=== PATIENT | female | born 1955 | race Caucasian/White ===

== ENCOUNTER 2017-01-13 13:20 | Emergency (ER) | payer MEDICARE, MEDICAID ==
[2017-01-13 13:50] VITALS: BP 103/81
--- NOTE | 2017-01-13 14:15 | UC ---
UC General HPI - HPI Summary HPI Summary: patient is from a jail, has had two days of vomiting. other people in the home have the same. she has a cough and a fever. she normally gets food pureed. - History of Current Complaint Chief Complaint: UCGI Stated Complaint: VOMITING Time Seen by Provider: 01/13/17 14:07 Hx Obtained From: Family/It Business Process Architect Hx From Patient Unobtainable Due To: Other - MR Onset/Duration: Sudden Onset, Lasting Days Timing: Constant Onset Severity: Mild Current Severity: Mild Pain Intensity: 0 - patient is not displaying signals of pain - Allergy/Home Medications Allergies/Adverse Reactions: Allergies Allergy/AdvReac Type Severity Reaction Status Date / Time Megestrol [From Megace] Allergy Unknown Verified 01/13/17 13:51 Reaction Details Penicillins Allergy Unknown Verified 01/13/17 13:51 Reaction Details Phenobarbital Allergy Unknown Verified 01/13/17 13:51 Reaction Details PMH/Surg Hx/FS Hx/Imm Hx Previously Healthy: Yes - Surgical History Surgical History: Unable to Obtain/Confirm - Family History Known Family History: Positive: Unknown Negative: Hypertension Family History: from jail, info not available - Social History Alcohol Use: None Substance Use Type: None Smoking Status (MU): Never Smoked Tobacco Review of Systems Constitutional: Fever Skin: Negative Eyes: Negative ENT: Nasal Discharge Respiratory: Cough Cardiovascular: Negative Gastrointestinal: Vomiting Genitourinary: Negative Motor: Negative Neurovascular: Negative Musculoskeletal: Negative Neurological: Negative Psychological: Negative All Other Systems Reviewed And Are Negative: Yes Physical Exam Triage Information Reviewed: Yes Appearance: No Pain Distress, Well-Nourished, Ill-Appearing Vital Signs: Initial Vital Signs Temp 99.2 F 01/13/17 13:38 Resp 18 01/13/17 13:38 BP 103/81 01/13/17 13:38 Vital Signs Reviewed: Yes Eye Exam: Normal Eyes: Positive: Conjunctiva Clear ENT: Positive: Hearing grossly normal, Nasal congestion, Nasal drainage, TMs normal Dental Exam: Normal Neck exam: Normal Neck: Positive: Supple, Nontender, No Lymphadenopathy Respiratory: Positive: Chest non-tender, No respiratory distress, No accessory muscle use, Crackles - upper right lobe Cardiovascular Exam: Normal Cardiovascular: Positive: RRR, No Murmur, Pulses Normal Abdominal Exam: Normal Abdomen Description: Positive: Nontender, No Organomegaly, Soft Bowel Sounds: Positive: Present Musculoskeletal Exam: Normal Musculoskeletal: Positive: Strength Intact, ROM Intact - at baseline, she has contractures, No Edema Neurological Exam: Normal Neurological: Positive: Alert, Muscle Tone Normal Psychological Exam: Normal Psychological: Positive: Normal Response To Family Skin Exam: Normal Course/Dx - Course Course Of Treatment: hx obtained, exam performed, meds reviewed, zofran given, flu test neg, treated with doxycycline for possible aspiration pneumonia - Differential Dx - Multi-Symptom Provider Diagnoses: gastroenteritis. aspiration pneumonia Discharge - Discharge Plan Condition: Stable Disposition: HOME Prescriptions: DOXYcycline CAP(*) [DOXYcycline 100MG CAP(*)] 100 mg PO BID #14 cap Patient Education Materials: Aspiration Pneumonia (GEN) Additional Instructions: take the doycycline as prescribed. The flu test was negative Push fluids while vomiting and diarrhea persist.
[2017-01-13] MEDS ORDERED: Ondansetron ODT TAB* 4 MG PO ONE (14:16)
== END 2017-01-13 15:06 | disposition home or self-care (01) ==
LOC: UCCORT 13:20
DX: K52.9 Noninfective gastroenteritis and colitis, unspecified (principal); J69.0 Pneumonitis due to inhalation of food and vomit; Z88.0 Allergy status to penicillin; Z88.8 Allergy status to other drugs, medicaments and biological substances
CPT/HCPCS: 87502; 99212; A9270-GY; G0463

== ENCOUNTER 2018-01-09 14:43 | Emergency (ER) | payer MEDICARE, MEDICAID ==
[2018-01-09 17:43] VITALS: BP 148/98
--- NOTE | 2018-01-09 17:50 | UC ---
Skin Complaint HPI - HPI Summary HPI Summary: Pt is accompanied by caregiver. caregivers reports erythematous area to right inner thigh and groin. Pt is incontinent and is wheelchair bound. - History of Current Complaint Time Seen by Provider: 01/09/18 17:35 Stated Complaint: RT LEG SKIN COMPLAINT Hx Obtained From: Family/Campus Recruiting Intern Hx From Patient Unobtainable Due To: Other - sever MR ?: No Onset/Duration: Gradual Onset, Still Present, Worse Since - onset Skin Exposure Onset/Duration: Days Ago Timing: Constant Onset Severity: Mild Current Severity: Moderate Pain Intensity: 0 Location: Discrete - right upper thigh and groin Character: Redness Aggravating Factor(s): Touch Alleviating Factor(s): Unknown Associated Signs & Symptoms: Positive: Rash - Allergy/Home Medications Allergies/Adverse Reactions: Allergies Allergy/AdvReac Type Severity Reaction Status Date / Time megestrol Allergy Unknown Verified 01/09/18 17:35 Reaction Details Penicillins Allergy Unknown Verified 01/09/18 17:35 Reaction Details phenobarbital Allergy Unknown Verified 01/09/18 17:35 Reaction Details Home Medications: Home Medications Acetaminophen SUPP* [Tylenol Supp*] 325 mg ID Q4H PRN 01/09/18 [History Confirmed 01/09/18] Acetaminophen TAB* [Tylenol TAB*] 325 mg PO Q4H PRN 01/09/18 [History Confirmed 01/09/18] Acetaminophen [Acetaminophen Extra Strength] 500 mg PO TID 01/09/18 [History Confirmed 01/09/18] Bacitracin OINTMENT ANGELICA* 1 applic TOPICAL TID PRN 01/09/18 [History Confirmed ] Bisacodyl SUPP* [Dulcolax Supp*] 10 mg ID SEE INSTRUCTIONS PRN 01/09/18 [ History Confirmed 01/09/18] Calcium Carbonate/Vitamin D2 [Oyster Shell Calcium-Vit D Tab] 1 each PO DAILY [History Confirmed 01/09/18] Docusate CAP* [Colace Cap*] 100 mg PO 2000 01/09/18 [History Confirmed 01/09/18] Esomeprazole(NF) [Nexium(NF)] 40 mg PO 0600 01/09/18 [History Confirmed 01/09/18 ] GuaiFENesin DM* [Robitussin DM*] 5 ml PO Q4H PRN 01/09/18 [History Confirmed 08/18] Hydrocortisone 1% CREAM* [Hytone Cream 1%*] 1 applic TOPICAL TID PRN 01/09/18 [ History Confirmed 01/09/18] Levothyroxine TAB* [Synthroid 25 MCG TAB*] 25 mcg PO 2000 01/09/18 [History Confirmed 01/09/18] Loratadine 10 mg PO DAILY 01/09/18 [History Confirmed 01/09/18] Meloxicam(NF) [Mobic(NF)] 7.5 mg PO DAILY 01/09/18 [History Confirmed 01/09/18] Pseudoephedrine TAB* [Sudafed TAB*] 30 mg PO Q6H PRN 01/09/18 [History Confirmed 01/09/18] Vitamin THERAPEUTIC TAB* [Theragran TAB*] 1 tab PO DAILY 01/09/18 [History Confirmed 01/09/18] Review of Systems Constitutional: Negative Skin: Rash Eyes: Negative ENT: Negative Respiratory: Negative Cardiovascular: Negative Gastrointestinal: Negative Genitourinary: Negative Motor: Decreased ROM, Weakness Neurovascular: Negative Musculoskeletal: Other: - wheelchair bound Neurological: Weakness Psychological: Negative Is Patient Immunocompromised?: No All Other Systems Reviewed And Are Negative: Yes PMH/Surg Hx/FS Hx/Imm Hx Previously Healthy: No Psychological History: Other - MR Other Psychological History: MR - Surgical History Surgical History: Unable to Obtain/Confirm - Family History Known Family History: Positive: Unknown Negative: Hypertension Family History: from assisted, info not available - Social History Occupation: Disabled Lives: Half-Way Alcohol Use: None Substance Use Type: None Smoking Status (MU): Never Smoked Tobacco Have You Smoked in the Last Year: No Physical Exam Triage Information Reviewed: Yes Appearance: Well-Appearing Vital Signs: Initial Vital Signs Temp 98.3 F 01/09/18 17:26 Pulse 74 01/09/18 17:26 Resp 18 01/09/18 17:26 BP 148/98 01/09/18 17:26 Pulse Ox 0 01/09/18 17:26 Vital Signs Reviewed: Yes Eye Exam: Normal Respiratory: Positive: No respiratory distress Musculoskeletal: Positive: Strength Limited @ - generalized, ROM Limited @ - generalized Neurological Exam: Other - pre-existing Psychological Exam: Other - MR Skin Exam: Other - erythematous, slight swelling, right upper thigh and groin. Course/Dx - Differential Diagnoses - Skin Complaint Differential Diagnoses: Cellulitis, Tinea - Diagnoses Provider Diagnoses: tinea right upper thigh and groin Discharge - Discharge Plan Condition: Stable Disposition: HOME Prescriptions: Fluconazole 100 MG TAB* [Diflucan 100 MG TAB*] 100 mg PO DAILY #7 tab Terbinafine [Lamisil At] 1 % TOPICAL Q12H #1 tube Patient Education Materials: Skin Yeast Infection (ED) Referrals: Dominick Purdy MD [Primary Care Provider] - If Needed
== END 2018-01-09 18:06 | disposition home or self-care (01) ==
LOC: UCCORT 14:43
DX: B35.9 Dermatophytosis, unspecified (principal); Z99.3 Dependence on wheelchair
CPT/HCPCS: 99212; G0463

== ENCOUNTER 2018-07-06 16:15 | Emergency (ER) | payer MEDICARE, MEDICAID ==
[2018-07-06 16:46] VITALS: BP 124/93
--- NOTE | 2018-07-06 16:52 | UC ---
Lower Extremity/Ankle HPI - HPI Summary HPI Summary: 63 year old female with developmental delay presents with caregiver reporting bruising to right lower leg. States it was noted upon return from her day programing today. Unsure of mechanism of injury. Patient is non-ambulatory and confined to wheelchair at baseline. - History of Current Complaint Chief Complaint: UCSkin Stated Complaint: RT LEG CONCERN Time Seen by Provider: 07/06/18 16:29 Hx Obtained From: Family/Print Shop Manager Hx From Patient Unobtainable Due To: Other - devopmental delay ?: No Severity Initially: Mild Severity Currently: Mild Pain Intensity: 0 - Allergies/Home Medications Allergies/Adverse Reactions: Allergies Allergy/AdvReac Type Severity Reaction Status Date / Time megestrol Allergy Unknown Verified 07/06/18 16:33 Reaction Details Penicillins Allergy Unknown Verified 07/06/18 16:33 Reaction Details phenobarbital Allergy Unknown Verified 07/06/18 16:33 Reaction Details PMH/Surg Hx/FS Hx/Imm Hx - Additional Past Medical History Additional PMH: non-contributory - Surgical History Surgical History: Unable to Obtain/Confirm - Family History Known Family History: Positive: Unknown Negative: Hypertension Family History: from custodial, info not available - Social History Occupation: Disabled Lives: Care Home Alcohol Use: None Substance Use Type: None Smoking Status (MU): Never Smoked Tobacco Have You Smoked in the Last Year: No Review of Systems Constitutional: Negative Skin: Bruising Respiratory: Negative Motor: Negative Neurovascular: Negative Musculoskeletal: Negative Is Patient Immunocompromised?: No All Other Systems Reviewed And Are Negative: Yes Physical Exam Triage Information Reviewed: Yes Completion Of Physical Exam Limited Due To: Other - developmental delay Appearance: Well-Appearing, No Pain Distress, Thin Vital Signs: Initial Vital Signs Temp 98.9 F 07/06/18 16:38 Pulse 110 07/06/18 16:38 Resp 14 07/06/18 16:38 BP 124/93 07/06/18 16:38 Vital Signs Reviewed: Yes Respiratory: Positive: No respiratory distress Cardiovascular: Positive: Pulses Normal Musculoskeletal Exam: Normal Neurological Exam: Normal Skin: Positive: Other - 2cm x 5.5 cm contusion noted to mid right anterior lower leg Lower Extremity Course/Dx - Course Course Of Treatment: 63 year old female with developmental delays presents with contusion to right lower leg discovered after day programming. Unknown mechanism of injury. Bruising is consistent with accidental injury likely self- inflicted. No obvious deformities. Patient is non-ambulatory at baseline. Recommend conservative treatment and watchful waiting. Caregiver verbalizes understanding. - Differential Dx/Diagnosis Provider Diagnoses: contusion right anterior lower leg Discharge - Sign-Out/Discharge Documenting (check all that apply): Patient Departure - Discharge Plan Condition: Stable Disposition: HOME Patient Education Materials: Contusion in Adults (ED) Referrals: Dominick Purdy MD [Primary Care Provider] - If Needed - Billing Disposition and Condition Condition: STABLE Disposition: Home Images Front/Back of Body, Lg (Sioux): 1 - 2 cm x 5.5 cm area of ecchymosis. No erythema, edema, or deformity noted.
== END 2018-07-06 16:59 | disposition home or self-care (01) ==
LOC: UCCORT 16:15
DX: S80.11XA Contusion of right lower leg, initial encounter (principal); X58.XXXA Exposure to other specified factors, initial encounter; Y93.9 Activity, unspecified; Y92.9 Unspecified place or not applicable; Z99.3 Dependence on wheelchair; Z88.0 Allergy status to penicillin; Z88.8 Allergy status to other drugs, medicaments and biological substances
CPT/HCPCS: 99211; G0463

== ENCOUNTER 2019-05-29 17:44 | Emergency (ER) | payer MEDICARE, MEDICAID ==
[2019-05-29 18:31] VITALS: BP 111/67
--- NOTE | 2019-05-29 18:58 | UC ---
Skin Complaint HPI - HPI Summary HPI Summary: 64 yo female with rash noted today recently started bactrim see is not verbal aid does not know why the bactrim was started - History of Current Complaint Chief Complaint: UCRash Time Seen by Provider: 05/29/19 18:41 Stated Complaint: RASH Hx Obtained From: Family/Gmat Instructor Hx From Patient Unobtainable Due To: Other - PROFOUND MR Onset/Duration: Lasting Hours Timing: Constant Onset Severity: Mild Current Severity: Mild Location: Other - primarily on trunk Character: Redness Aggravating Factor(s): Nothing Alleviating Factor(s): Unknown Associated Signs & Symptoms: Positive: Rash - Allergy/Home Medications Allergies/Adverse Reactions: Allergies Allergy/AdvReac Type Severity Reaction Status Date / Time megestrol Allergy Unknown Verified 05/29/19 18:32 Reaction Details Penicillins Allergy Unknown Verified 05/29/19 18:32 Reaction Details phenobarbital Allergy Unknown Verified 05/29/19 18:32 Reaction Details PMH/Surg Hx/FS Hx/Imm Hx Previously Healthy: Yes - Surgical History Surgical History: Unable to Obtain/Confirm - Family History Known Family History: Positive: Unknown Negative: Hypertension Family History: from snf, info not available - Social History Alcohol Use: None Substance Use Type: None Smoking Status (MU): Never Smoked Tobacco Have You Smoked in the Last Year: No Review of Systems All Other Systems Reviewed And Are Negative: Yes Constitutional: Positive: Negative Skin: Positive: Rash Eyes: Positive: Negative ENT: Positive: Negative Respiratory: Positive: Negative Cardiovascular: Positive: Negative Gastrointestinal: Positive: Negative Genitourinary: Positive: Negative Motor: Positive: Negative Neurovascular: Positive: Negative Musculoskeletal: Positive: Negative Neurological: Positive: Negative Psychological: Positive: Negative Physical Exam Triage Information Reviewed: Yes Appearance: Well-Appearing, No Pain Distress, Well-Nourished Vital Signs: Initial Vital Signs Temp 97.9 F 05/29/19 18:25 BP 111/67 05/29/19 18:25 Vital Signs Reviewed: Yes ENT: Negative: Nasal congestion, Nasal drainage, Trismus, Muffled voice Dental Exam: Other - edentulous Neck: Positive: Supple, Nontender, No Lymphadenopathy Respiratory: Positive: Lungs clear, Normal breath sounds, No respiratory distress, No accessory muscle use Cardiovascular: Positive: RRR, No Murmur Musculoskeletal: Positive: Other: - contractures Neurological: Positive: Alert Skin Exam: Other - red macular rash Course/Dx - Diagnoses Provider Diagnosis: Allergic reaction caused by a drug Discharge - Sign-Out/Discharge Documenting (check all that apply): Patient Departure All imaging exams completed and their final reports reviewed: No Studies - Discharge Plan Condition: Stable Disposition: HOME Patient Education Materials: General Allergic Reaction (ED) Referrals: Dominick Purdy MD [Primary Care Provider] - 2 Days Additional Instructions: stop bactrim contact her MD in AM to see what antibiotic he would like to use in it's place - Billing Disposition and Condition Condition: STABLE Disposition: Home
== END 2019-05-29 19:06 | disposition home or self-care (01) ==
LOC: UCCORT 17:44
DX: L27.0 Generalized skin eruption due to drugs and medicaments taken internally (principal); T36.8X5A Adverse effect of other systemic antibiotics, initial encounter; Y92.9 Unspecified place or not applicable; F73 Profound intellectual disabilities; Z88.0 Allergy status to penicillin
CPT/HCPCS: 99211; G0463

== ENCOUNTER 2019-12-20 09:59 | Emergency (ER) | payer MEDICARE, MEDICAID ==
--- OUTSIDE RECORDS SUMMARY | 2019-12-20 10:08 | XMS REPORT | Continuity of Care Document ---
:1955 External Reference #:[id number] Author Name Abril Walden FNP (transmitted by agent of provider Ashlyn Pro) Address [address] [place] [address] Care Team Providers Name Role Phone Dominick Purdy MD - Family Medicine Care Team Information Machine Dyer [phone] Problems Active Problems Provider Date Arthralgia of the pelvic region and thigh Anjel Jones M.D. Onset: 2016 Social History Type Date Description Comments Sex Unknown Tobacco Use Start: Unknown Never Smoked Cigarettes ETOH Use Never used alcohol Tobacco Use Start: Unknown Patient denies history of smoking Smoking Status Reviewed: 11/22/19 Patient denies history of smoking Allergies, Adverse Reactions, Alerts Active Allergies Reaction Severity Comments Date Penicillin 09/15/2018 Megace 09/15/2018 Phenobarbital 09/15/2018 Bactrim 11/22/2019 Inactive Allergies NKDA 09/11/2016 Medications Active Medications SIG Qnty Indications Ordering Date Provider Nystscot Use an oral swab 140units B37.9 Iram, 11/22/2019 to coat surfaces Abril Hopkins, [id number]/ML of mouth (5Ml) OFFICE SERVICES REPRESENTATIVE Suspension mouth four times a day for 7 days, swallowing if fine Meloxicam take 1 tablet by 30tabs Tara Hammonds, 09/03/2013 7.5mg mouth daily with Tablets food Acetaminophen 1 tabs by mouth Unknown 500mg tid & prn Tablets Colace 1 by mouth a day Unknown 100mg Capsules Levothyroxine Sodium 1 by mouth every Unknown day 25mcg Tablets Loratadine 1 by mouth every Unknown 10mg day Tablets Nexium 1 by mouth every Unknown 40mg Capsules day DR Amaya Richards Calcium 1 daily Unknown 250+D 250-125 Tablets Multivitamin Adult 1 tab daily Unknown Chewtabs Dulcolax apply once a day Unknown 10mg in rectum on day Suppository 4 for no bm. Immunizations Description No Information Available Vital Signs Date Vital Result Comment 11/22/2019 8:15am BP Systolic 100 mmHg BP Diastolic 60 mmHg Body Temperature 98.0 F Heart Rate 66 /min Respiratory Rate 18 /min Weight 60.00 lb Pain Level 0 09/15/2019 8:57am Body Temperature 97.7 F Results Description No Information Available Procedures Description No Information Available Medical Devices Description No Information Available Encounters Type Date Location Provider Dx Diagnosis Office Visit 11/22/2019 Walk In Clinic Rhiannon Walden7.9 Candidiasis, 8:00a Abril Hopkins, unspecified OFFICE SERVICES REPRESENTATIVE Office Visit 09/15/2019 Orthopaedic Office Wendy Bennett M16.12 Unilateral primary 9:00a ISHA Agustin osteoarthritis, left hip M16.11 Unilateral primary osteoarthritis, right hip Assessments Date Code Description Provider 11/22/2019 B37.9 Candidiasis, unspecified Abril Walden, OFFICE SERVICES REPRESENTATIVE 09/15/2019 M16.12 Unilateral primary osteoarthritis, Wendy Bennett RPAC left hip 09/15/2019 M16.11 Unilateral primary osteoarthritis, Wendy Bennett, [facility] right hip Plan of Treatment Future Appointment(s):09/15/2020 8:30 am - Wendy Bennett [facility]AC at [facility]opa[facility] Fojgku3011/22/2019 - Abril Walden, FNPB37.9 Candidiasis, unspecifiedNew Medication:Nystatin 179129 Unit/ML - Use an oral swab to coat surfaces of mouth (5Ml) mouth four times a day for 7 days, swallowing if fineComments:Use nystatin on a oral swab, coat surfaces of mouth. Offer yogurt which will be helpful. plenty of fluids. If symptoms do not improve please follow up with PCP or go to the ED for further evaluation. Functional Status Description No Information Available Mental Status Description No Information Available Referrals Description No Information Available
--- OUTSIDE RECORDS SUMMARY | 2019-12-20 10:08 | XMS REPORT | Continuity of Care Document ---
:1955 External Reference #:[id number] Author Name Abril Walden FNP (transmitted by agent of provider Ashlyn Pro) Address [address] [place] [address] Care Team Providers Name Role Phone Dominick Purdy MD - Family Medicine Care Team Information Assistant Director Of Residence Life Problems Active Problems Provider Date Arthralgia of [...] Iram, 11/22/2019 to coat surfaces Abril Hopkins, [id number]/ML of mouth (5Ml) PHARMACY OPERATIONS MANAGER Suspension mouth four times a day for [...] Rhiannon Walden7.9 Candidiasis, 8:00a Abril Hopkins, unspecified PHARMACY OPERATIONS MANAGER Office Visit 09/15/2019 Orthopaedic Office Wendy Bennett M16.12 Unilateral primary 9:00a ISHA Agustin osteoarthritis, left hip M16.11 Unilateral primary osteoarthritis, right hip Assessments Date Code Description Provider 11/22/2019 B37.9 Candidiasis, unspecified Abril Walden, PHARMACY OPERATIONS MANAGER 09/15/2019 M16.12 Unilateral primary osteoarthritis, Wendy Bennett RPAC left hip 09/15/2019 M16.11 Unilateral primary osteoarthritis, Wendy Bennett, [facility] right hip Plan of Treatment Future Appointment(s):09/15/2020 8:30 am - Wendy Bennett RPAC at Orthopaedic Xaxlrv4111/22/2019 - Abril Walden, FNPB37.9 Candidiasis, unspecifiedNew Medication:Nystatin 324508 Unit/ML - Use an oral swab to [...]
--- OUTSIDE RECORDS SUMMARY | 2019-12-20 10:08 | XMS REPORT | Continuity of Care Document ---
:1955 External Reference #:[id number] Author Name Abril Walden FNP (transmitted by agent of provider Ashlyn Pro) Address [address] [place] [address] Care Team Providers Name Role Phone Dominick Purdy MD - Family Medicine Care Team Information Sharepoint Trainer [phone] Problems Active Problems Provider Date Arthralgia of the pelvic region and thigh Anjel Jones M.D. Onset: 2016 Social History Type Date Description Comments Sex Unknown Tobacco Use Start: Unknown Never Smoked Cigarettes ETOH Use Never used alcohol Tobacco Use Start: Unknown Patient denies history of smoking Smoking Status Reviewed: 12/06/19 Patient denies history of smoking Allergies, Adverse Reactions, Alerts Active Allergies Reaction Severity Comments Date Penicillin 09/15/2018 Megace 09/15/2018 Phenobarbital 09/15/2018 Bactrim 11/22/2019 Inactive Allergies NKDA 09/11/2016 Medications Active Medications SIG Qnty Indications Ordering Date Provider Mucinex take one tablet 8tabs R05 Iram, 12/06/2019 600mg Tablets every 12 hours x Abril Hopkins, ER 12HR 4 days MICROSOFT DEVELOPER Nystatin Use an oral swab 140units B37.9 Iram, 11/22/2019 to coat surfaces Abril Hopkins, 563742Gwpb/ML of mouth (5Ml) MICROSOFT DEVELOPER Suspension mouth four times a day for 7 days, swallowing if fine Meloxicam take 1 tablet by 30tabs Tara Hammonds, 09/03/2013 7.5mg mouth daily with MD Tablets food Acetaminophen 1 tabs by mouth [...] on day Suppository 4 for no bm. History Medications Mucinex take one tablet 30tabs R05 Abril Walden 12/06/2019 - 600mg every 12 hours M., MICROSOFT DEVELOPER 12/06/2019 Tablets ER 12HR as needed cough Immunizations Description No Information Available Vital Signs Date Vital Result Comment 12/06/2019 8:40am BP Systolic 98 mmHg BP Diastolic 58 mmHg Body Temperature 98.8 F Heart Rate 80 /min Respiratory Rate 18 /min Weight 60.00 lb 11/22/2019 8:15am BP Systolic 100 mmHg BP Diastolic 60 mmHg Body Temperature 98.0 F Heart Rate 66 /min Respiratory Rate 18 /min Weight 60.00 lb Pain Level 0 Results Test Acquired Date Facility Test Result H/L Range Note Laboratory test 12/06/2019 [facility] Influenza A&B neg finding Rapid Procedures Description No Information Available Medical Devices Description No Information Available Encounters Type Date Location Provider Dx Diagnosis Office Visit 12/06/2019 Walk In Clinic Iram, B34.9 Viral infection, 8:15a Abril M., MICROSOFT DEVELOPER unspecified R50.9 Fever, unspecified R05 Cough H61.21 Impacted cerumen, right ear Office Visit 11/22/2019 Walk In Clinic Iram, B37.9 Candidiasis, 8:00a Abril M., MICROSOFT DEVELOPER unspecified Office Visit 09/15/2019 Orthopaedic Wendy Bennett M16.12 Unilateral 9:00a Office S., [facility] primary osteoarthritis, left hip M16.11 Unilateral primary osteoarthritis, right hip Assessments Date Code Description Provider 12/06/2019 B34.9 Viral infection, unspecified Davila-Maria Del Carmen Barrigave Kellie, MICROSOFT DEVELOPER 12/06/2019 R50.9 Fever, unspecified Davila-Linus Abril Kellie, MI[employer]OS[employer] DEVELOPER 12/06/2019 R05 Cough Abril Walden, [facility] 12/06/2019 H61.21 Impacted cerumen, right ear Abril Walden, MI[employer]OS[employer] DEVELOPER 11/22/2019 B37.9 Candidiasis, unspecified Abril Walden, MICROSO[employer] DEVELOPER 09/15/2019 M16.12 Unilateral primary osteoarthritis, Wendy Bennett, [facility] left hip 09/15/2019 M16.11 Unilateral primary osteoarthritis, Wendy Bennett, [facility] right hip Plan of Treatment Future Appointment(s):09/15/2020 8:30 am - Wendy Bennett [facility] at Orthopaedic Wkrovd9012/06/2019 - Abril Walden, FNPB34.9 Viral infection, unspecifiedComments:Get lots of rest. Maintain good clear fluid intake to stay well hydrated. Frequent handwashing to prevent spread of germs. Please avoid exposure to tobacco smoke and/or polluted air. Add Mucinex to help break up secretions in the chest. Take Tylenol (acetaminophen), Advil( ibuprofen) needed for feveror aches, dosage according to package directions. Please follow-up with your primary care providerwithin 1 week for recheck.R50.9 Fever, unspecifiedComments:Get re-evaluated for worsening or changing [id number] CoughNew Medication:Mucinex 600 mg - take one tablet every 12 hours x 4 daysMucinex 600 mg - take one tablet every 12 hours as needed [id number] Impacted cerumen, right earComments:Make an appointment with your specialist to have ears flushed Functional Status Description No Information Available Mental Status Description No Information Available Referrals Description No Information Available
[2019-12-20 10:38] VITALS: BP 116/81
[2019-12-20 11:00] LABS: Influenza A Molecular NEGATIVE (Negative); Influenza B Molecular NEGATIVE (Negative)
--- NOTE | 2019-12-20 11:05 | UC ---
HPI Febrile Illness - HPI Summary HPI Summary: 64-year-old woman comes in with fever and vomiting. Patient lives in a snf. Her caregiver believes the symptoms started this morning. Patient has been having a runny nose. The caregiver has not noted any increased urinary frequency or foul-smelling urine or any indications of pain. Caregiver does report that the patient is quieter than usual. Patient is nonverbal. - History of Current Complaint Chief Complaint: UCGeneralIllness Time Seen by Provider: 12/20/19 10:30 - Allergy/Home Medications Allergies/Adverse Reactions: Allergies Allergy/AdvReac Type Severity Reaction Status Date / Time sulfamethoxazole Allergy Intermediate Rash Verified 12/20/19 10:24 [From Bactrim] trimethoprim [From Bactrim] Allergy Intermediate Rash Verified 12/20/19 10:24 megestrol Allergy Unknown Verified 12/20/19 10:24 Reaction Details Penicillins Allergy Unknown Verified 12/20/19 10:24 Reaction Details phenobarbital Allergy Unknown Verified 12/20/19 10:24 Reaction Details PMH/Surg Hx/FS Hx/Imm Hx Previously Healthy: Yes - NON VERBAL - Surgical History Surgical History: Yes Surgery Procedure, Year, and Place: colonoscopy - Family History Known Family History: Positive: Unknown Negative: Hypertension Family History: from snf, info not available - Social History Alcohol Use: None Substance Use Type: None Smoking Status (MU): Never Smoked Tobacco Have You Smoked in the Last Year: No Review of Systems All Other Systems Reviewed And Are Negative: Yes Constitutional: Positive: Fever, Other - SEE HPI Skin: Positive: Negative Eyes: Positive: Negative ENT: Positive: Nasal Discharge Respiratory: Positive: Negative Cardiovascular: Positive: Negative Gastrointestinal: Positive: Vomiting Genitourinary: Positive: Negative Motor: Positive: Negative Neurovascular: Positive: Negative Musculoskeletal: Positive: Negative Neurological: Positive: Negative Psychological: Positive: Negative Is Patient Immunocompromised?: No Physical Exam Triage Information Reviewed: Yes Completion Of Physical Exam Limited Due To: Other - Patient is nonverbal and gives no history. She does have a runny nose but does not appear to be any acute distress. Nontoxic in appearance. She is awake and alert. 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 Neurological: Positive: Alert Psychological: Positive: Other: - Patient is somewhat quiet per caregiver, otherwise Normal response to caregiver. Skin Exam: Normal Course/Dx - Course Course Of Treatment: Rapid influenza was negative. Patient does have a runny nose otherwise I do not find a source of infection. Patient is incontinent of urine on a normal basis. Caregiver has not noted any strong smelling urine. At this time we'll treat as a viral cause of infection with acetaminophen at rest and keep a close eye out for any other signs of infection such as strong smelling urine or UTI symptoms or ill appearance or not improving. In that case patient is to get reevaluated again right away. - Diagnoses Provider Diagnosis: Febrile illness, Vomiting Discharge ED - Sign-Out/Discharge Documenting (check all that apply): Patient Departure All imaging exams completed and their final reports reviewed: No Studies - Discharge Plan Condition: Stable Disposition: HOME Patient Education Materials: Fever in Adults (ED), Acute Nausea and Vomiting ( ED) Referrals: Dominick Purdy MD [Primary Care Provider] - Additional Instructions: FOLLOW UP WITH YOUR DOCTOR IF NOT COMPLETELY IMPROVED. Influenza test was negative in clinic. Treat the patient's fevers with acetaminophen. Keep a close eye for any other signs of infection such as urinary tract infection symptoms or cough, chest congestion or ill appearance or any other concerns. GET REEVALUATED SOONER IF NOT IMPROVING OR WORSE; CONTINUED VOMITING, ILL APPEARANCE, DEHYDRATION, SIGNS OF URINARY TRACT INFECTION, CONTINUED FEVERS OR ANY QUESTIONS OR CONCERNS. - Billing Disposition and Condition Condition: STABLE Disposition: Home
== END 2019-12-20 11:27 | disposition home or self-care (01) ==
LOC: UCCORT 09:59
DX: R11.10 Vomiting, unspecified (principal); R50.9 Fever, unspecified; R09.89 Other specified symptoms and signs involving the circulatory and respiratory systems; Z88.0 Allergy status to penicillin; Z88.8 Allergy status to other drugs, medicaments and biological substances; Z88.2 Allergy status to sulfonamides; Z88.1 Allergy status to other antibiotic agents
CPT/HCPCS: 99211; G0463